=== PATIENT | male | born 1950 | race Caucasian/White ===

== ENCOUNTER → 2024-02-10 10:41 | Outpatient (REF) | payer MEDICARE, SELFPAY ==
[2024-02-10 12:45] LABS: ALT (SGPT) 26 U/L (0-50); AST (SGOT) 39 U/L (17-59); Albumin 4.6 g/dl (3.5-5.0); Alkaline Phosphatase 81 U/L (38-126); Blood Urea Nitrogen 29 mg/dl (9-20); Calcium 9.1 mg/dl (8.4-10.2); Carbon Dioxide 26 mmol/L (22-30); Chloride 104 mmol/L (98-107); Glucose 81 mg/dl (70-99); HDL Cholesterol 78 mg/dl; LDL Cholesterol, Calculated 101 mg/dl; Potassium 4.9 mmol/L (3.5-5.1); Sodium 135 mmol/L (135-145); Total Bilirubin 1.2 mg/dl (0.2-1.3); Total Cholesterol 192 mg/dl (50-199); Total Protein 7.1 g/dl (6.3-8.2); Triglyceride 66 mg/dl (10-149); Very Low Density Lipoprotein 13 mg/dl (0-30)
[2024-02-10 12:49] LABS: % Basophils 0.5 % (0-2); % Eosinophils 5.2 % (0-6); % Immature Granulocytes 0.5 % (0-0.5); % Monocytes 16.8 % (1.7-9.3); Absolute Eosinophils 0.3 10^3/uL (0-0.7); Absolute Lymphocytes 1.3 10^3/uL (1.2-3.4); Absolute Neutrophils 3.3 10^3/uL (1.4-6.5); Hematocrit 51.9 % (39.0-52.0); Mean Corp Hgb Conc. 32.8 g/dL (33.0-37.0); Mean Corpuscular Hgb 30.5 pg (27.0-31.0); Mean Corpuscular Volume 93.2 fL (80.0-94.0); Nucleated Red Blood Cells % 0 % (-); Platelet Count 359 10^3/uL (130-400); Red Blood Cell Count 5.57 10^6/uL (4.70-6.10); Red Cell Dist. Width 13.1 % (11.5-14.5); White Blood Cell Count 5.9 10^3/uL (4.8-10.8)
[2024-02-10 14:10] LABS: Urine Albumin Negative (Neg - Trace); Urine Bilirubin 1+ (Negative); Urine Character Clear (Clear); Urine Color Yellow; Urine Glucose Negative (Negative); Urine Ketone 1+ (Negative); Urine Leukocyte Negative (Negative); Urine Nitrite Negative (Negative); Urine Occult Blood Negative (Negative); Urine Urobilinogen Negative (Neg - 1+)
== END ==
LOC: REG 10:41
PROVIDERS: ATTENDING PHYSICIAN Family Medicine
DX: R53.83 Other fatigue (principal); E78.5 Hyperlipidemia, unspecified; Z12.5 Encounter for screening for malignant neoplasm of prostate; I10 Essential (primary) hypertension
CPT/HCPCS: 36415; 80053; 80061; 81003; 85025; G0103

== ENCOUNTER → 2024-02-18 14:46 | Outpatient (REF) | payer MEDICARE, SELFPAY ==
[2024-02-20 15:16] LABS: PSA Total 28.3 ng/mL (0.0-4.0)
== END ==
LOC: REG 14:46
PROVIDERS: ATTENDING PHYSICIAN Family Medicine
DX: R97.20 Elevated prostate specific antigen [PSA] (principal)
CPT/HCPCS: 36415; 84153; 84154

== ENCOUNTER → 2024-03-29 19:09 | Outpatient (REF) | payer MEDICARE, SELFPAY | LOC: MRI 3T 19:09 | PROVIDERS: ATTENDING PHYSICIAN Specialist; FAMILY PHYSICIAN Family Medicine | DX: R97.20 Elevated prostate specific antigen [PSA] (principal) | CPT/HCPCS: 72197; A9575 ==

== ENCOUNTER 2024-04-15 23:09 | Emergency (ER) | payer MEDICARE, SELFPAY ==
[2024-04-15 23:12] VITALS: BP 185/114
--- NOTE | 2024-04-16 00:21 | ED.GENMED ---
History of Present Illness
General
Chief Complaint: Skin Surface Trauma
Source: patient
Exam Limitations: none
Time Seen by Provider: 04/15/24 23:58
Nursing documentation reviewed up to this point in time: agreed with
Travel History
Have you had any contact with someone who has COVID-19?: No
Do you have any symptoms of coronavirus? Fever > 100 degrees, chills, cough, shortness of breath, sore throat, loss of taste or smell, muscle aches, or headache?: No
History of Present Illness
History of Present Illness:
This is a 74-year-old gentleman with history of hypertension maintained on valsartan who complains of persistent bleeding from what he believes is a small varicose vein right side of his nose that began after washing his face tonight. He denies
insightful injury, no recent scab. Despite applying pressure he has had continued slow oozing of blood from pinpoint area right side of his nose. He denies epistaxis. He takes no anticoagulants including aspirin.
No other associated symptoms.
Past History
Past History
ED Past Medical History: HTN
ED Past Surgical History: Orthopedic and Other (Conjunctival melanoma removal)
Patient has exhibited threatening behavior?: No
Social History
Tobacco: Non-smoker
Alcohol: None
Drug: None
Personal:
Living: alone
Employment: Retired
Family History
Family History: Other (Noncontributory)
Phy Exam
Physical Exam
Physical Exam:
GENERAL: 74-year-old gentleman appears his stated age, bright and alert, pleasant, appears in no acute distress. Holding 4 x 4 to right side of his nose.
EYE: anicteric
NECK: Supple, nontender, no meningismus, no significant adenopathy.
ENT: oral mucosa is moist. No rhinorrhea nor epistaxis. There is a tiny superficial varicose vein/telangiectasia right side of the nose that has a pinpoint area of scant slow active oozing of blood. Bleeding stops readily with light pressure.
There is no ecchymosis, no soft tissue swelling, no erythema. No tenderness to palpation.
CARDIAC: Regular rate and rhythm. no murmur.
LUNGS: Clear breath sounds bilaterally, no acute respiratory distress, no wheezes/rales/rhonchi
NEUROLOGICAL: Alert and oriented x3, no focal neuro deficits. Gait is carranza and steady.
SKIN: Warm and dry, normal color, superficial telangiectasia right lateral nose as above. There is very mild global erythema of the nose and bilateral cheeks consistent with mild erythematous/rosacea.
MUSCULOSKELETAL: No C/C/E. peripheral pulses are full and equal b/l. No palpable tenderness.
PSYCH: Normal and appropriate interaction.
Course
Vital Signs
Initial and Last Documented VS:
Initial Vital Signs
Temp Pulse Resp BP Pulse Ox
98.9 F 111 18 185/114 95
04/15/24 23:12 04/15/24 23:12 04/15/24 23:12 04/15/24 23:12 04/15/24 23:12
Last Documented Vital Signs
Temp Pulse Resp BP Pulse Ox
98.9 F 100 18 150/90 95
04/15/24 23:12 04/16/24 00:24 04/16/24 00:24 04/16/24 00:24 04/16/24 00:24
Comment
Comment:
There is a small superficial telangiectasia with active oozing of blood right side of the nose that was cleansed with normal saline solution and then local cautery with silver nitrate with complete resolution.
Patient observed for 15 minutes post procedure and area remains dry without return of bleeding.
Discussed importance of keeping area dry, avoid washing or rubbing the area over the next 3 days. If bleeding recurs recommend local pressure and if this is ineffective return to the ED for further evaluation.
Follow-up with PCP versus dermatology for recheck.
Return precautions discussed.
*Pulse Oximetry
Patient hypoxic: no
*Critical Care Note
Total Time (30-74mins, 75-104mins- exclusive of procedures): Not Applicable
ED Attending Note
-
Portions of this chart may have been created with voice recognition software.� Occasional wrong word or��sound alike� substitutions may have occurred due to the inherent limitations of voice recognition software.
Discharge Plan
Departure
Patient Disposition: Home (Routine Discharge)
Date of Disposition: 04/16/24
Time of Disposition: 00:21
Patient with high blood pressure during this ER visit?: No
Condition: Good
Discharge Problem:
Bleeding from varicose vein
Instructions: Telangiectasia (DC), Silver Nitrate
Prescriptions:
No Action
prednisone 20 MG tablet
40 mg PO DAILY Qty: 6 0RF
cephalexin 500 MG capsule
500 mg PO TID Qty: 30 0RF
furosemide 20 MG tablet
20 mg PO DAILY Qty: 5 0RF
Referrals:
Jesus Rivera MD [Family Provider] - Call in 1-3 days for appt
Interventions
Interventions:
*Risk Screen - Suicide Last Done: 04/15/24 23:12
*General Assessment Last Done: 04/15/24 23:12
*Neglect/Abuse Screening Last Done: 04/15/24 23:12
*Nursing Disposition Last Done: 04/16/24 00:27
ED-Skin Assessment Last Done: 04/15/24 23:52
Discharge Date and Time
Discharge Date/Time: 04/16/24 00:28
Print Language: [place]
[2024-04-16 00:24] VITALS: BP 150/90
== END 2024-04-16 00:28 | disposition home or self-care (01) ==
LOC: EMR 23:09
PROVIDERS: EMERGENCY PHYSICIAN Emergency Medicine; FAMILY PHYSICIAN Family Medicine
DX: I86.8 Varicose veins of other specified sites (principal); I10 Essential (primary) hypertension
CPT/HCPCS: 99282

== ENCOUNTER 2025-08-21 09:34 | Emergency (ER) | payer MEDICARE, SELFPAY ==
[2025-08-21 09:36] VITALS: BP 175/116
--- NOTE | 2025-08-21 11:22 | ED.GENMED ---
History of Present Illness
General
Chief Complaint: Skin Problem
Source: patient
Exam Limitations: none
Time Seen by Provider: 08/21/25 10:35
Nursing documentation reviewed up to this point in time: agreed with
History of Present Illness
History of Present Illness:
see MDM
Past History
Past History
ED Past Medical History: HTN
ED Past Surgical History: Orthopedic and Other (Conjunctival melanoma removal)
Patient has exhibited threatening behavior?: No
Social History
Tobacco: Non-smoker
Alcohol: None
Drug: None
Personal:
Living: alone
Employment: Retired
Family History
Family History: Other (Noncontributory)
Review of Systems
Review of Systems
Allergies reviewed?: Yes
All Other Systems: Not applicable
Phy Exam
Physical Exam
Physical Exam:
see MDM
Course
Orders/Labs/Results
Orders:
Orders
08/21/25 11:21
Cephalexin Monohydrate [Keflex] 500 mg PO NOW STA
Prednisone [Deltasone] 50 mg PO NOW STA
Vital Signs
Initial and Last Documented VS:
Initial Vital Signs
Temp Pulse Resp BP Pulse Ox
36.6 C 96 18 175/116 97
08/21/25 09:36 08/21/25 09:36 08/21/25 09:36 08/21/25 09:36 08/21/25 09:36
Last Documented Vital Signs
Temp Pulse Resp BP Pulse Ox
36.8 C 86 18 189/98 97
08/21/25 11:28 08/21/25 11:28 08/21/25 11:28 08/21/25 11:28 08/21/25 11:28
MDM/Problems Addressed
Differential Diagnosis Includes:
see MDM
MDM/Problems Addressed:
Note:
CHIEF COMPLAINT(S)
Pain and swelling in the thumb.
HISTORY OF PRESENT ILLNESS
The patient is a 75-year-old male who presented with pain and swelling in the right thumb, which began 2 nights ago. The patient awoke from sleep due to a localized pain in the thumb joint, describing a small black dot in the area initially. The
patient reported attempting to manage symptoms with ice and aspirin. Despite these measures, the pain persisted and extended further into the thumb area, characterized by heat and redness, worse today than yesterday.
no trauma
The patient was concerned about a possible spider bite but acknowledged the difficulty in confirming this. [place] potential [place] exposure, contributing to the uncertainty of the initial cause. The patient
has a history of rheumatoid arthritis but is not currently on treatment for it.
denies fever/chills
CHRONIC MEDICAL CONDITIONS SIGNIFICANTLY AFFECTING CARE
Rheumatoid arthritis.
SOCIAL DETERMINANTS AFFECTING HEALTH
[place] which may imply potential environmental risks from wildlife or insects. 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
emotional stress that could affect his health.
PHYSICAL EXAM
GENERAL: Alert , in no apparent distress
NEUROLOGICAL: Alert and oriented, no focal neuro deficits, normal strength and sensation
SKIN: Warm and dry, skin intact.
erythema dorsal R thumb IPJ and exending past MCP joint
warmth
small rounded papules ? vesicles int he center of the redness at the IPJ of the R thumb dorsally
MUSCULOSKELETAL: diffuse swelling of the R thumb from ipj to mcp joint with erythema
streak of erythema past the mcp joint and up tot he wrist
no lymphangitits
PSYCH: Normal and appropriate interaction.
- Nursing notes reviewed and vital signs reviewed.
PLAN
- Initiate antibiotic therapy to cover possible bacterial infection.
- Immobilize the thumb with a brace to prevent further irritation and worsening of the condition.
- Obtain orthopedic consultation (specifically with the patients previous specialist, Dr. Emerson) to evaluate for herpetic acosta and consider antiviral treatment if clinically indicated.
DIFFERENTIAL DIAGNOSIS
The Differential Diagnosis includes, in no particular order and is not limited to:
1. Herpetic acosta
2. Spider bite reaction
3. Cellulitis
4. Septic arthritis
5. Gout
6. Rheumatoid arthritis flare
7. Paronychia
8. Psoriatic arthritis
9. Traumatic joint injury
10. Tenosynovitis
75-year-old maleWith a history of hypertension presents with atraumatic pain swelling and redness to his right dorsal thumb streaking up to his wrist
With some pain and stiffness, started 2 days ago. It has gotten worse. Third was a concern that the patient thought maybe he could have had a spider bite however he did not see a spider, did not have a obvious bite lorraine and did not have any
itchiness before this started. On exam it does look like there is diffuse swelling of the joint with red erythema on the dorsal aspect, limited flexion at the IPJ but able to flex it, full range of motion of the MCP joint, no tenderness of the
flexor surface and several tiny dots that look like papules or early vesicles on the dorsal aspect of the thumb at the IPJ within the erythema that almost look like a herpetic acosta
I spoke with Dr. Decker who operated on the patient's hand previously. He recommended that we treat with both antibiotics and steroids, covering for both problems rather than doing antiviral medication and he will see the patient in the office. I
am going to immobilize him with a brace as well
Also on the differential is CPPD or gout. The prednisone should help with that
*Pulse Oximetry
SaO2: 97
Oxygen Mode of Delivery: Room air
Patient hypoxic: no (97)
*Critical Care Note
Total Time (30-74mins, 75-104mins- exclusive of procedures): Not Applicable
ED Attending Note
-
Portions of this chart may have been created with voice recognition software.� Occasional wrong word or��sound alike� substitutions may have occurred due to the inherent limitations of voice recognition software.
Discharge Plan
Departure
Patient Disposition: Home (Routine Discharge)
Date of Disposition: 08/21/25
Time of Disposition: 11:30
Patient with high blood pressure during this ER visit?: Yes
Condition: Fair
Covid-19: Not Applicable
Discharge Problem:
Finger swelling, Cellulitis
Instructions: Cellulitis (Skin Infection), Adult (DC), BLOOD PRESSURE
Prescriptions:
New
cephalexin 500 mg capsule
500 mg PO QID Qty: 28 0RF
prednisone 50 mg tablet
50 mg PO DAILY Qty: 4 0RF
No Action
prednisone 20 MG tablet
40 mg PO DAILY Qty: 6 0RF
cephalexin 500 MG capsule
500 mg PO TID Qty: 30 0RF
furosemide 20 MG tablet
20 mg PO DAILY Qty: 5 0RF
Referrals:
UNKNOWN - PT DOES,NOT KNOW [Family Provider]
Activity Restrictions/Additional Instructions:
It is unclear really what the cause of your redness and swelling is. It could be an arthritis like gout or degenerative arthritis or pseudogout, it also could be a bacterial skin infection called cellulitis, or it could be a viral infection called
herpetic acosta. I spoke with Dr. Decker who recommended that we treat with both antibiotics to cover for bacterial infection but then also give you steroids, the steroids would treat both an arthritis as well as a viral cause like a herpetic
acosta. He thought you should follow-up in the office in a couple days to see that this is improving. Certainly if its not you need to return to the emergency department for worsening streaking redness, severe pain, fevers or chills etc.
Wear the brace, you can remove it to bathe, also remove it several times a day to evaluate the redness and swelling and make sure it is not getting worse. But the brace will immobilize your thumb so that it can rest.
For pain try Tylenol 3 times a day 2 extra strength. Do not take ibuprofen while you are on prednisone
Return for any concerns
Interventions
Interventions:
*Risk Screen - Suicide Last Done: 08/21/25 09:36
*Nursing Disposition Last Done: 08/21/25 11:51
ED-Skin Assessment Last Done: 08/21/25 10:58
Discharge Date and Time
Discharge Date/Time: 08/21/25 11:51
Print Language: [place]UNG[place]
[2025-08-21] MEDS: KEFLEX 500 MG PO (11:26)
[2025-08-21] MEDS: DELTASONE 50 MG PO (11:26)
[2025-08-21 11:28] VITALS: BP 189/98
== END 2025-08-21 11:51 | disposition home or self-care (01) ==
LOC: EMR 09:34
PROVIDERS: EMERGENCY PHYSICIAN Emergency Medicine
DX: L03.011 Cellulitis of right finger (principal); I10 Essential (primary) hypertension; M06.9 Rheumatoid arthritis, unspecified; Z85.840 Personal history of malignant neoplasm of eye
CPT/HCPCS: 99283